=== PATIENT | female | born 1980 | race American Indian/Alaskan Native ===

== ENCOUNTER 2021-09-25 15:50 | Emergency (ER) | payer SELFPAY ==
[2021-09-25] MEDS ORDERED: Pantoprazole 40 MG Vial IVPUSH ONE (17:24)
[2021-09-25] MEDS ORDERED: Sodium Chloride 0.9% 10 ML Syringe FLUSH PRN (17:24)
[2021-09-25] MEDS ORDERED: Ondansetron 4 MG/2 ML SDV IVPUSH ONE (17:24)
[2021-09-25] MEDS ORDERED: Sodium Chloride 0.9% 1,000 ML IV STA (17:24)
--- NOTE | 2021-09-25 18:02 | EDM.PDOC ---
<FrancoiseElijah A - Last Filed: 09/26/21 00:45> ED HPI GENERAL MEDICAL PROBLEM - General Chief Complaint: General Stated Complaint: [facility] Time Seen by Provider: 09/25/21 17:00 - Related Data Allergies Allergy/AdvReac Type Severity Reaction Status Date / Time savpenos Allergy Other Uncoded 09/25/21 17:31 Course - Re-Assessments/Exams Free Text/Narrative Re-Assessment/Exam: 09/26/21 00:46 Case discussed with Fabiana at [facility] at 00:37. Case then discussed with Dr. Sanchez, Hospitalist at [facility], at 00:39. She recommended that we start a Protonix drip. She accepted the patient for admission to their PCU. The patient will be transported by ground ambulance. Departure - Departure Time of Disposition: 00:47 Disposition: DC/Tfer to [facility] 02 Condition: Fair Clinical Impression: Alcoholic cirrhosis, Severe anemia, GI bleed, Hypokalemia - Discharge Information *PRESCRIPTION DRUG MONITORING PROGRAM REVIEWED*: Not Applicable *COPY OF PRESCRIPTION DRUG MONITORING REPORT IN PATIENT RENNY: Not Applicable Referrals: PCP,None [Primary Care Provider] - Forms: ED Department Discharge <Miriam Johnston - Last Filed: 10/03/21 22:21> ED HPI GENERAL MEDICAL PROBLEM - General Source of Information: Reports: Patient, RN Notes Reviewed History Limitations: Reports: No Limitations - History of Present Illness INITIAL COMMENTS - FREE TEXT/NARRATIVE: Patient is a 41-year-old female presenting to the emergency department by [facility] with complaints of abdominal pain, hematemesis, and hematochezia. Patient reports this has been going on for approximately the last 2 months. She also complains of intermittent chest pains and shortness of breath which have also been occurring daily for the last 2 months. Most recently she cannot stand up or walk due to weakness. She reports occasional confusion. Has a history of colic liver cirrhosis. She has not seen a primary care provider in quite some time, however she was hospitalized at [facility] 2 months ago for shortness of breath, however she is unsure what her official diagnosis was with regards to this. She says they did tell her that she is "dying of liver cirrhosis" to stop drinking hard liquor. She reports that she now drinks a sixpack of [place] ice daily. She knows where she is and who she is, however she is unsure of what day it is. She does report intermittent confusion at times. Treatments CALENDER TENDER: Reports: IV/IO, Oxygen Abdomen Pain Score (Numeric/FACES): 8 Past Medical History - Past Surgical History HEENT Surgical History: Reports: Other (See Below) Other HEENT Surgeries/Procedures: Has had an unknown throat surgery Social & Family History - Tobacco Use Tobacco Use Status *Q: Former Tobacco User Used Tobacco, but Quit: Yes Month/Year Tobacco Last Used: July 2021 - Alcohol Use Days Per Week of Alcohol Use: 7 Number of Drinks Per Day: 26 Total Drinks Per Week: 182 Date of Last Drink: 09/25/21 - Recreational Drug Use Recreational Drug Use: Yes Drug Use in Last 12 Months: Yes Recreational Drug Type: Reports: Marijuana/Hashish Other Recreational Drug Type: States that smoking Marijuana 'hurts my throat, so I just eat it' ED ROS GENERAL - Review of Systems Review Of Systems: See Below Constitutional: Reports: No Symptoms. Denies: Fever, Chills HEENT: Reports: No Symptoms Respiratory: Reports: Shortness of Breath. Denies: Cough Cardiovascular: Reports: Chest Pain. Denies: Lightheadedness, Palpitations Endocrine: Reports: Fatigue GI/Abdominal: Reports: Abdominal Pain, Distension, Hematemesis, Hematochezia, Nausea, Vomiting : Reports: No Symptoms Musculoskeletal: Reports: No Symptoms Skin: Reports: Jaundice Neurological: Reports: Confusion. Denies: Headache Psychiatric: Reports: No Symptoms Hematologic/Lymphatic: Reports: No Symptoms Immunologic: Reports: No Symptoms ED EXAM, GENERAL - Physical Exam Exam: See Below Exam Limited By: No Limitations General Appearance: Alert, WD/WN, No Apparent Distress Eye Exam: Bilateral Eye: Other (Bilateral scleral icterus) Throat/Mouth: Normal Gums Respiratory/Chest: No Respiratory Distress, No Accessory Muscle Use, Chest Non- Tender, Decreased Breath Sounds Cardiovascular: Normal Peripheral Pulses, Regular Rate, Rhythm, No Gallop, No JVD, No Murmur, No Rub GI/Abdominal: Soft, No Abnormal Bruit, No Mass, Distended, Tender (generalized throughout), Other (significant ascites). No: Guarding, Rigid Neurological: Alert, Oriented, CN II-XII Intact, Normal Cognition, No Motor/Sensory Deficits Psychiatric: Normal Affect, Normal Mood Skin Exam: Warm, Dry, Jaundice, Pallor #1 Interpretation EKG Date: 09/25/21 Time: 17:58 Rhythm: NSR Rate (Beats/Min): 90 [place]: Normal P-Wave: Present QRS: Normal ST-T: Normal QT: Normal Course - Vital Signs Last Recorded V/S: Last Vital Signs Temp 97.1 F 09/26/21 02:00 Pulse 85 09/26/21 02:00 Resp 27 H 09/26/21 02:00 BP 98/40 L 09/26/21 02:00 Pulse Ox 100 09/25/21 18:22 - Orders/Labs/Meds Labs: Laboratory Tests 09/25/21 09/25/21 09/25/21 Range/Units 17:25 18:35 18:36 WBC 16.10 H (3.98-10.04) K/mm3 RBC 1.49 L (3.98-5.22) M/mm3 Hgb 3.8 L* (11.2-15.7) gm/dl Hct 13.6 L (34.1-44.9) % MCV 91.3 (79.4-94.8) fl MCH 25.5 L (25.6-32.2) pg MCHC 27.9 L (32.2-35.5) g/dl RDW Std Deviation 55.1 H (36.4-46.3) fL Plt Count 361 (182-369) K/mm3 MPV 8.3 L (9.4-12.3) fl Neut % (Auto) 75.0 H (34.0-71.1) % Lymph % (Auto) 14.3 L (19.3-51.7) % Wood % (Auto) 8.4 (4.7-12.5) % Eos % (Auto) 1.9 (0.7-5.8) Baso % (Auto) 0.2 (0.1-1.2) % Neut # (Auto) 12.07 H (1.56-6.13) K/mm3 Lymph # (Auto) 2.30 (1.18-3.74) K/mm3 Wood # (Auto) 1.35 H (0.24-0.36) K/mm3 Eos # (Auto) 0.31 (0.04-0.36) K/mm3 Baso # (Auto) 0.03 (0.01-0.08) K/mm3 Manual Slide Review Abnormal smear PT (9.7-12.0) SECONDS INR APTT (21.7-31.4) SECONDS Sodium (136-145) mEq/L Potassium (3.5-5.1) mEq/L Chloride (98-107) mEq/L Carbon Dioxide (21-32) mEq/L Anion Gap (5-15) BUN (7-18) mg/dL Creatinine (0.55-1.02) mg/dL Est Cr Clr Drug Dosing mL/min Estimated GFR (MDRD) (>60) mL/min BUN/Creatinine Ratio (14-18) Glucose (70-99) mg/dL Calcium (8.5-10.1) mg/dL Total Bilirubin (0.2-1.0) mg/dL GGT (5-55) U/L AST (15-37) U/L ALT (14-59) U/L Alkaline Phosphatase (46-116) U/L Ammonia (11-32) umol/L Troponin I (0.00-0.056) ng/mL C-Reactive Protein (<1.0) mg/dL NT-Pro-B Natriuret Pep (0-125) pg/mL Total Protein (6.4-8.2) g/dl Albumin (3.4-5.0) g/dl Globulin gm/dL Albumin/Globulin Ratio (1-2) Lipase (73-393) U/L Urine Color Arin H (Yellow) Urine Appearance Cloudy H (Clear) Urine pH 5.5 (5.0-8.0) Ur Specific [place] 1.025 (1.005-1.030) Urine Protein Trace H (Negative) Urine Glucose (UA) Negative (Negative) Urine Ketones Negative (Negative) Urine Occult Blood Trace-lysed H (Negative) Urine Nitrite Negative (Negative) Urine Bilirubin 2+ H (Negative) Urine Urobilinogen 4.0 H (0.2-1.0) Ur Leukocyte Esterase Negative (Negative) Urine RBC 0-5 (0-5) /hpf Urine WBC 0-5 (0-5) /hpf Ur Squamous Epith Cells 20-30 H (0-5) /hpf Urine Bacteria Moderate H (FEW) /hpf Urine Mucus Few (FEW) /hpf SARS-CoV-2 RNA (TRINO) Negative (NEGATIVE) Blood Type Gel Antibody Screen Crossmatch 09/25/21 09/25/21 09/25/21 Range/Units 18:36 18:36 18:36 WBC (3.98-10.04) K/mm3 RBC (3.98-5.22) M/mm3 Hgb (11.2-15.7) gm/dl Hct (34.1-44.9) % MCV (79.4-94.8) fl MCH (25.6-32.2) pg MCHC (32.2-35.5) g/dl RDW Std Deviation (36.4-46.3) fL Plt Count (182-369) K/mm3 MPV (9.4-12.3) fl Neut % (Auto) (34.0-71.1) % Lymph % (Auto) (19.3-51.7) % Wood % (Auto) (4.7-12.5) % Eos % (Auto) (0.7-5.8) Baso % (Auto) (0.1-1.2) % Neut # (Auto) (1.56-6.13) K/mm3 Lymph # (Auto) (1.18-3.74) K/mm3 Wood # (Auto) (0.24-0.36) K/mm3 Eos # (Auto) (0.04-0.36) K/mm3 Baso # (Auto) (0.01-0.08) K/mm3 Manual Slide Review PT (9.7-12.0) SECONDS INR APTT (21.7-31.4) SECONDS Sodium 133 L (136-145) mEq/L Potassium 2.2 L* (3.5-5.1) mEq/L Chloride 91 L (98-107) mEq/L Carbon Dioxide 37 H (21-32) mEq/L Anion Gap 7.2 (5-15) BUN 12 (7-18) mg/dL Creatinine 2.5 H (0.55-1.02) mg/dL Est Cr Clr Drug Dosing 24.50 mL/min Estimated GFR (MDRD) 21 (>60) mL/min BUN/Creatinine Ratio 4.8 L (14-18) Glucose 100 H (70-99) mg/dL Calcium 7.1 L (8.5-10.1) mg/dL Total Bilirubin 4.0 H (0.2-1.0) mg/dL GGT 122 H (5-55) U/L AST 78 H (15-37) U/L ALT 18 (14-59) U/L Alkaline Phosphatase 130 H (46-116) U/L Ammonia (11-32) umol/L Troponin I 0.032 (0.00-0.056) ng/mL C-Reactive Protein 3.6 H* (<1.0) mg/dL NT-Pro-B Natriuret Pep 2226 H (0-125) pg/mL Total Protein 7.0 (6.4-8.2) g/dl Albumin 1.0 L (3.4-5.0) g/dl Globulin 6.0 gm/dL Albumin/Globulin Ratio 0.2 L (1-2) Lipase (73-393) U/L Urine Color (Yellow) Urine Appearance (Clear) Urine pH (5.0-8.0) Ur Specific [place] (1.005-1.030) Urine Protein (Negative) Urine Glucose (UA) (Negative) Urine Ketones (Negative) Urine Occult Blood (Negative) Urine Nitrite (Negative) Urine Bilirubin (Negative) Urine Urobilinogen (0.2-1.0) Ur Leukocyte Esterase (Negative) Urine RBC (0-5) /hpf Urine WBC (0-5) /hpf Ur Squamous Epith Cells (0-5) /hpf Urine Bacteria (FEW) /hpf Urine Mucus (FEW) /hpf SARS-CoV-2 RNA (TRINO) (NEGATIVE) Blood Type Gel Antibody Screen Crossmatch 09/25/21 09/25/21 09/25/21 Range/Units 18:36 18:36 18:36 WBC (3.98-10.04) K/mm3 RBC (3.98-5.22) M/mm3 Hgb (11.2-15.7) gm/dl Hct (34.1-44.9) % MCV (79.4-94.8) fl MCH (25.6-32.2) pg MCHC (32.2-35.5) g/dl RDW Std Deviation (36.4-46.3) fL Plt Count (182-369) K/mm3 MPV (9.4-12.3) fl Neut % (Auto) (34.0-71.1) % Lymph % (Auto) (19.3-51.7) % Wood % (Auto) (4.7-12.5) % Eos % (Auto) (0.7-5.8) Baso % (Auto) (0.1-1.2) % Neut # (Auto) (1.56-6.13) K/mm3 Lymph # (Auto) (1.18-3.74) K/mm3 Wood # (Auto) (0.24-0.36) K/mm3 Eos # (Auto) (0.04-0.36) K/mm3 Baso # (Auto) (0.01-0.08) K/mm3 Manual Slide Review PT 21.2 H (9.7-12.0) SECONDS INR 1.96 APTT 44.7 H (21.7-31.4) SECONDS Sodium (136-145) mEq/L Potassium (3.5-5.1) mEq/L Chloride (98-107) mEq/L Carbon Dioxide (21-32) mEq/L Anion Gap (5-15) BUN (7-18) mg/dL Creatinine (0.55-1.02) mg/dL Est Cr Clr Drug Dosing mL/min Estimated GFR (MDRD) (>60) mL/min BUN/Creatinine Ratio (14-18) Glucose (70-99) mg/dL Calcium (8.5-10.1) mg/dL Total Bilirubin (0.2-1.0) mg/dL GGT (5-55) U/L AST (15-37) U/L ALT (14-59) U/L Alkaline Phosphatase (46-116) U/L Ammonia 37 H (11-32) umol/L Troponin I (0.00-0.056) ng/mL C-Reactive Protein (<1.0) mg/dL NT-Pro-B Natriuret Pep (0-125) pg/mL Total Protein (6.4-8.2) g/dl Albumin (3.4-5.0) g/dl Globulin gm/dL Albumin/Globulin Ratio (1-2) Lipase (73-393) U/L Urine Color (Yellow) Urine Appearance (Clear) Urine pH (5.0-8.0) Ur Specific [place] (1.005-1.030) Urine Protein (Negative) Urine Glucose (UA) (Negative) Urine Ketones (Negative) Urine Occult Blood (Negative) Urine Nitrite (Negative) Urine Bilirubin (Negative) Urine Urobilinogen (0.2-1.0) Ur Leukocyte Esterase (Negative) Urine RBC (0-5) /hpf Urine WBC (0-5) /hpf Ur Squamous Epith Cells (0-5) /hpf Urine Bacteria (FEW) /hpf Urine Mucus (FEW) /hpf SARS-CoV-2 RNA (TRINO) (NEGATIVE) Blood Type AB POSITIVE Gel Antibody Screen Negative Crossmatch See Detail 09/25/21 Range/Units 18:36 WBC (3.98-10.04) K/mm3 RBC (3.98-5.22) M/mm3 Hgb (11.2-15.7) gm/dl Hct (34.1-44.9) % MCV (79.4-94.8) fl MCH (25.6-32.2) pg MCHC (32.2-35.5) g/dl RDW Std Deviation (36.4-46.3) fL Plt Count (182-369) K/mm3 MPV (9.4-12.3) fl Neut % (Auto) (34.0-71.1) % Lymph % (Auto) (19.3-51.7) % Wood % (Auto) (4.7-12.5) % Eos % (Auto) (0.7-5.8) Baso % (Auto) (0.1-1.2) % Neut # (Auto) (1.56-6.13) K/mm3 Lymph # (Auto) (1.18-3.74) K/mm3 Wood # (Auto) (0.24-0.36) K/mm3 Eos # (Auto) (0.04-0.36) K/mm3 Baso # (Auto) (0.01-0.08) K/mm3 Manual Slide Review PT (9.7-12.0) SECONDS INR APTT (21.7-31.4) SECONDS Sodium (136-145) mEq/L Potassium (3.5-5.1) mEq/L Chloride (98-107) mEq/L Carbon Dioxide (21-32) mEq/L Anion Gap (5-15) BUN (7-18) mg/dL Creatinine (0.55-1.02) mg/dL Est Cr Clr Drug Dosing mL/min Estimated GFR (MDRD) (>60) mL/min BUN/Creatinine Ratio (14-18) Glucose (70-99) mg/dL Calcium (8.5-10.1) mg/dL Total Bilirubin (0.2-1.0) mg/dL GGT (5-55) U/L AST (15-37) U/L ALT (14-59) U/L Alkaline Phosphatase (46-116) U/L Ammonia (11-32) umol/L Troponin I (0.00-0.056) ng/mL C-Reactive Protein (<1.0) mg/dL NT-Pro-B Natriuret Pep (0-125) pg/mL Total Protein (6.4-8.2) g/dl Albumin (3.4-5.0) g/dl Globulin gm/dL Albumin/Globulin Ratio (1-2) Lipase 164 (73-393) U/L Urine Color (Yellow) Urine Appearance (Clear) Urine pH (5.0-8.0) Ur Specific [place] (1.005-1.030) Urine Protein (Negative) Urine Glucose (UA) (Negative) Urine Ketones (Negative) Urine Occult Blood (Negative) Urine Nitrite (Negative) Urine Bilirubin (Negative) Urine Urobilinogen (0.2-1.0) Ur Leukocyte Esterase (Negative) Urine RBC (0-5) /hpf Urine WBC (0-5) /hpf Ur Squamous Epith Cells (0-5) /hpf Urine Bacteria (FEW) /hpf Urine Mucus (FEW) /hpf SARS-CoV-2 RNA (TRINO) (NEGATIVE) Blood Type Gel Antibody Screen Crossmatch Meds: Medications Discontinued Medications Generic Name Dose Route Start Last Admin Trade Name Freq PRN Reason Stop Dose Admin Sodium Chloride 1,000 mls @ 100 mls/hr 09/25/21 17:24 09/25/21 17:42 Normal Saline IV 09/26/21 03:23 100 mls/hr NOW STA Administration Potassium Chloride 10 meq/ 100 mls @ 100 mls/hr 09/25/21 20:30 09/26/21 02:24 Premix IV 09/26/21 06:29 100 mls/hr Q1H CHADWICK Administration Sodium Chloride Confirm 09/25/21 21:53 09/25/21 22:37 Normal Saline Administered 09/25/21 21:54 10 mls/hr Dose Administration 500 mls @ as directed .ROUTE .STK-MED ONE Pantoprazole Sodium 80 mg/ 100 mls @ 10 mls/hr 09/26/21 00:45 09/26/21 01:40 Sodium Chloride IV 8 mg/hr Q10H CHADWICK 10 mls/hr Administration 8 MG/HR Ondansetron HCl 4 mg 09/25/21 17:24 09/25/21 17:42 Ondansetron 4 Mg/2 Ml Sdv IVPUSH 09/25/21 17:25 4 mg ONETIME ONE Administration Pantoprazole Sodium 80 mg 09/25/21 17:24 09/25/21 17:42 Pantoprazole 40 Mg Vial IVPUSH 09/25/21 17:25 80 mg BOLUS ONE Administration Sodium Chloride 10 ml 09/25/21 17:24 09/25/21 17:47 Sodium Chloride 0.9% 10 Ml Syringe FLUSH 10 ml ASDIRECTED PRN Administration Keep Vein Open - Re-Assessments/Exams Free Text/Narrative Re-Assessment/Exam: Patient is a 41-year-old female presenting to the emergency department with complaints of shortness of breath, abdominal pain, hematemesis, hematochezia, and inability to stand. She has alcoholic liver cirrhosis and states that she was told she is "dying from liver cirrhosis ". She has not seen a primary care provider in a "long time "but she states that she was hospitalized at [facility] in [place] 2 months ago, however she cannot provide much information about this. On exam, she has significant abdominal ascites and is pallorous with visible jaundice and scleral icterus. She has generalized abdominal tenderness. Lung sounds are otherwise clear to auscultation. I have ordered blood work, urinalysis, type and screen, EKG, chest x-ray. Given patient's history, she likely has poor renal function, therefore I will complete CT of the abdomen pelvis without IV contrast to better visualize her ascites. 09/25/21 18:49 CBC is back and shows a hemoglobin low at 3.8. I have ordered for 2 units of packed RBCs to be transfused. Patient will likely require much more than this, however she will need to be transferred to a tertiary care facility. 09/25/212044 Remainder of the hematology significant for hypokalemia, acute renal failure, and liver failure due to alcohol liver cirrhosis. proBNP elevated at 2226. Urinalysis is negative for infection. Covid is negative. Patient's coagulations are affected by her liver failure with a PT of 21.2, INR 1.96, and APTT 44.7. I have ordered 10 potassium riders to be given. I have contacted the following facilities to discuss possible transfer with none of them having availability: [facility] in [facility] As well as medical facilities in [facility], in [place]. Also called the state transfer line and had patient put on the list. Patient will likely be in our emergency department through the evening. I will order an additional 2 units of packed RBCs for a total of 4 units to be transfused. 09/25/21 21:00 SAGE Mayo received call from Fabiana at [facility] in [place]. She thinks they may have beds opening up in the next few hours. Contacted lab and had them hold off on crossmatching the second 2 units so that they do not go to waste if she does transfer out. If she stays in the facility, they will resume crossmatching the second 2 units of blood. 09/25/21 22:[address] Owusu at end of shift. He will assume care and disposition of patient due to end of shift. Sepsis Event Note (ED) - Evaluation Sepsis Screening Result: No Definite Risk
--- NOTE | 2021-09-25 19:13 | CR ---
Chest: Portable view of the chest was obtained. Comparison: No prior chest imaging is available. Left-sided pleural effusion is seen. Pulmonary vessels are slightly increased. Poor inspiratory effort is noted. Heart size is at the upper limits of normal. Bony structures show nothing acute. Impression: 1. Poor inspiratory effort. 2. Left-sided pleural effusion is seen. 3. Pulmonary vessels are slightly increased. Diagnostic code #3
--- NOTE | 2021-09-25 19:17 | CT ---
CT abdomen and pelvis Technique: Multiple axial sections were obtained from above the dome of the diaphragm inferiorly through the pubic symphysis. Intravenous and oral contrast were not utilized. Comparison: No prior abdominal or pelvic imaging is available. Findings: Left-sided pleural effusion is seen. Mild compressive atelectasis is seen adjacent to the pleural effusion. Right lung shows very minimal atelectasis. Liver is somewhat small suggestive of cirrhosis. Ascites is seen adjacent to the liver and spleen as well as ascites extending into the pelvis. There appears to be a small femoral hernia present which contains a small amount of fluid. There is also edema being seen within the abdominal wall. Spleen size is within normal limits. Kidneys show no abnormal calcifications. No hydronephrosis is seen. Pancreas shows no discrete abnormality. Gallbladder contains no calcified gallstones. Abdominal aorta shows no aneurysm. No retroperitoneal adenopathy is seen. No discrete pelvic mass or adenopathy is seen. Bone window settings were reviewed which show spondylitic defects of L5-S1 with spondylolisthesis measuring 7 mm. Severe disc space narrowing is also seen at L5-S1. Impression: 1. Findings suspicious for cirrhosis with diffuse ascites being seen throughout the abdomen and pelvis. 2. Left-sided pleural effusion with mild compressive atelectasis within the left base. 3. Small right femoral hernia containing a small amount of fluid. 4. Spondylolytic defects at L5-S1 with spondylolisthesis. 5. No other acute abnormality is appreciated. Diagnostic code #3
[2021-09-25] MEDS: Potassium Chloride 10 MEQ in Premix Bag 1 BAG IV SCH ×3 (20:58→23:04)
[2021-09-25] MEDS ORDERED: Sodium Chloride 0.9% 500 ML ONE (21:53)
[2021-09-26] MEDS: Potassium Chloride 10 MEQ in Premix Bag 1 BAG IV SCH ×3 (00:16→02:24)
[2021-09-26] MEDS ORDERED: Pantoprazole 80 MG in Sodium Chloride 0.9% 100 ML IV SCH (00:45)
== END 2021-09-26 02:24 ==
LOC: JD.ED 15:50
DX: K70.30 Alcoholic cirrhosis of liver without ascites (principal); K92.2 Gastrointestinal hemorrhage, unspecified; D64.9 Anemia, unspecified; E87.6 Hypokalemia; Z91.018 Allergy to other foods; Z87.891 Personal history of nicotine dependence; Z20.822 Contact with and (suspected) exposure to COVID-19
CPT/HCPCS: 36415; 36430; 71045; 74176; 80053; 81001; 82140; 82977; 83690; 83880; 84484; 85025; 85610; 85730; 86140; 86850; 86900; 86901; 86922; 87635; 93005; 96365; 96366; 96368; 96375; 96376; 99285; C9113; J2405; J3480; J7030; J7040; P9016; U0002

== ENCOUNTER 2022-03-01 18:27 | Emergency (ER) | payer SELFPAY ==
[2022-03-01] MEDS ORDERED: Magnesium Sulfate/Water 2 GM in Premix Bag 1 BAG IV ONE (21:04)
== END 2022-03-02 07:25 | disposition home or self-care (01) ==
LOC: JD.ED 18:27
DX: K70.30 Alcoholic cirrhosis of liver without ascites (principal); F10.129 Alcohol abuse with intoxication, unspecified; E83.42 Hypomagnesemia; D64.9 Anemia, unspecified; E66.9 Obesity, unspecified; Z68.30 Body mass index [BMI] 30.0-30.9, adult; Z88.8 Allergy status to other drugs, medicaments and biological substances; Z87.891 Personal history of nicotine dependence; Z28.310 Unvaccinated for COVID-19; Y90.0 Blood alcohol level of less than 20 mg/100 ml
CPT/HCPCS: 36415; 80053; 80306; 80307; 82140; 83735; 85025; 85610; 85730; 96365; 96366; 99284; J3475